=== PATIENT | female | born 2005 | race Two or more races ===

== ENCOUNTER 2024-03-20 17:39 | Emergency (ER) | payer OTHER, MEDICAID ==
[~2024-03-20] VITALS: Ht 152.4 cm; Wt 33.1 kg
[2024-03-20 17:57] VITALS: TEMP 98
[2024-03-20 21:20] VITALS: BP 128/76; PULSE 66; RESP 18; O2SAT 100
[2024-03-20] MEDS ORDERED: ACET500T58 PO (21:21)
== END 2024-03-20 21:28 | disposition home or self-care (01) ==
LOC: ER 17:39
DX: S16.1XXA Strain of muscle, fascia and tendon at neck level, initial encounter (principal); S93.601A Unspecified sprain of right foot, initial encounter; S20.20XA Contusion of thorax, unspecified, initial encounter; R51.9 Headache, unspecified; F12.90 Cannabis use, unspecified, uncomplicated; V43.52XA Car driver injured in collision with other type car in traffic accident, initial encounter; Y93.89 Activity, other specified; Y92.89 Other specified places as the place of occurrence of the external cause; Y99.8 Other external cause status